=== PATIENT | female | born 1945 | race American Indian/Alaskan Native ===

== ENCOUNTER 2017-08-23 13:46 | Outpatient (CLI) | payer MEDICARE ==
--- NOTE | 2017-08-23 16:21 | XRay Report ---
XRAY LEFT KNEE 4 THREE VIEWS: 08/23/17 CLINICAL: Left knee pain. FINDINGS: Status post total joint replacement with normal appearance of the prosthesis. No apparent loosening. Moderate osteopenia. No fracture or dislocation.No joint effusion.Normal soft tissues. IMPRESSION: Status post total joint replacement.
--- NOTE | 2017-08-23 16:33 | XRay Report ---
XRAY LUMBAR SPINE THREE VIEWS: 08/23/17 13:46:00 CLINICAL: Low back pain. FINDINGS: Grade I L4-5 spondylolisthesis with no pars defect. The rest of the bodies are in normal alignment. Mild disc space narrowing at L4-5 and L5-S1. The rest of the disc spaces are intact. The pedicles are intact. No fracture. Small anterior osteophytes at multiple levels and most prominent at L2-3. Facet joint sclerosis at all levels and greatest at L4-5. Very mild dextroscoliosis centered at L2. Mild bilateral SI joint sclerosis but no erosions. Normal soft tissues. IMPRESSION: 1. Multilevel facet joint arthropathy and grade I L4-5 spondylolisthesis with no pars defect. 2. Minimal degenerative disc disease. 3. Mild scoliosis.
== END 2017-08-23 13:47 | disposition home or self-care (01) ==
LOC: SPVIMAG 13:46
PROVIDERS: ATTEND Orthopaedic Surgery Sports Medicine
DX: M43.16 Spondylolisthesis, lumbar region (principal); M51.36 Other intervertebral disc degeneration, lumbar region; M41.86 Other forms of scoliosis, lumbar region; M12.88 Other specific arthropathies, not elsewhere classified, other specified site; M85.862 Other specified disorders of bone density and structure, left lower leg; Z96.652 Presence of left artificial knee joint
CPT/HCPCS: 72100

== ENCOUNTER 2017-12-19 10:23 | Outpatient (CLI) | payer MEDICARE ==
--- NOTE | 2017-12-19 17:13 | XRay Report ---
FINAL REPORT EXAM: XR KNEE 4+V LT HISTORY: STATUS POST HARDWARE REMOVAL TECHNIQUE: Four views the left knee PRIORS: None. FINDINGS: Postoperative films following removal metallic knee replacement hardware. Rib radiodense material is seen at location of prior distal femoral and tibial hardware. Expected postoperative findings are seen with surgical marvin present and soft tissue swelling IMPRESSION: . Postoperative films following removal of metallic knee prosthesis hardware
== END 2017-12-19 10:24 | disposition home or self-care (01) ==
LOC: SPVIMAG 10:23
PROVIDERS: ATTEND Orthopaedic Surgery Sports Medicine
DX: T84.54XA Infection and inflammatory reaction due to internal left knee prosthesis, initial encounter (principal); Z98.890 Other specified postprocedural states

== ENCOUNTER 2018-10-08 10:56 | Day surgery (SDC) | payer MEDICARE ==
[2018-10-08] MEDS ORDERED: MYDRIACYL ONE (11:12)
[2018-10-08] MEDS ORDERED: AK-Dilate ONE (11:12)
[2018-10-08] MEDS ORDERED: IOPIDINE ONE (11:13)
[2018-10-08] MEDS ORDERED: NEOFRIN ONE (11:30)
[2018-10-08] MEDS ORDERED: NEOFRIN OU ONE (11:34)
[2018-10-08] MEDS ORDERED: IOPIDINE OU ONE (11:34)
[2018-10-08] MEDS ORDERED: MYDRIACYL OU ONE (11:34)
[2018-10-08 12:30] VITALS: BP 124/61
== END 2018-10-08 10:57 | disposition home or self-care (01) ==
LOC: OR 10:56
PROVIDERS: ATTEND Ophthalmology
DX: H26.493 Other secondary cataract, bilateral (principal); M17.0 Bilateral primary osteoarthritis of knee; Z96.652 Presence of left artificial knee joint; Z98.890 Other specified postprocedural states; Z79.899 Other long term (current) drug therapy; Z88.0 Allergy status to penicillin; Z90.710 Acquired absence of both cervix and uterus
CPT/HCPCS: 82962